=== PATIENT | male | born 1940 | race Caucasian/White ===

== ENCOUNTER → 2020-10-18 | Outpatient (CLI) | payer OTHER ==
[~2020-10-18] MED LIST: ASA81BEC PO; CILOSTAZOL 100100 M1 PO; LEVOTHYROXINE112 MCG PO; LIPITOR 40 MG T40 M1 PO; MULTI VITAMIN1 EACH PO; PRILOSEC OTC20 MG PO; TURMERIC500 M2 PO; VITAMIN C500 M2 PO; VITAMIN D350 MCG PO; ZINC50 M2 PO
== END ==
LOC: LAB 13:46
PROVIDERS: ATTEND Ophthalmology
DX: Z01.812 Encounter for preprocedural laboratory examination (principal); Z20.822 Contact with and (suspected) exposure to COVID-19

== ENCOUNTER 2020-10-21 08:47 | Day surgery (SDC) | payer OTHER ==
[~2020-10-21] VITALS: Ht 170.2 cm; Wt 80.7 kg
[2020-10-21 11:22] VITALS: BP 125/71
--- NOTE | 2020-10-25 06:20 | O ---
[facility] [place] [address] OPERATIVE REPORT Name: GLO ZAMORA Room #: DEP [facility]..#: [id number] Admission: 10/21/20 Attend Phys: Pete Cotter MD Discharge: 10/21/20 Date of : 38 Report #: [id number] THIS REPORT FOR: cc: Ruddy Bird MD, Simon J. 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 PROCEDURE: Bilateral lower lid ectropion repair with transconjunctival left lower lid and cheek lift. SURGEON: Pete Cotter MD MANAGER OF CASE: None. ANESTHESIA: MAC. COMPLICATIONS: None. 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 In addition, he has left lower lid retraction with lagophthalmos. He presents today for a bilateral lower lid and left cheek procedure in order to attempt to improve his ocular surface milieu, level of comfort and visual clarity. Informed consent was obtained to include but not limited to the potential risk for loss of vision, bleeding, infection, failure to improve the problem, the potential need for further surgery or treatment. DESCRIPTION OF PROCEDURE: The patient was taken to the operating room where 2% Xylocaine with epinephrine mixed with equal parts of 0.75% Marcaine with Wydase was administered transcutaneously and transconjunctivally to each lower lid lateral canthus and infratemporal fossa. In addition, on the left side, the cheek was anesthetized. The patient was then prepped and draped in the usual sterile fashion. Attention was first turned to the left side where the left lateral canthus was then clamped with a Bourgeois clamp. A sharp canthotomy and cantholysis was then performed. A tarsal strip was then prepared laterally removing the lash bearing portion of the redundant lid margin and the redundant tarsal plate. [facility] [address] [address] OPERATIVE REPORT Name: GLO ZAMORA Room #: DEP [facility].#: [id number] Admission: 10/21/20 Attend Phys: Pete Cotter MD Discharge: 10/21/20 Date of : 38 Report #: [id number] was once re-achieved. Attention was then turned away from the ectropion repair and towards the lower lid and cheek lift. A transconjunctival incision was then made below the inferior border of the tarsal plate across the width of the lid. The dissection was then carried down into the pre-malar tissues utilizing a cutting current. Hemostasis was re-achieved. The lower lid and cheek tissues were then elevated and resuspended with interrupted mattress chromic sutures. This lifted the lower lid and cheek well. Attention was then turned to the completion of the ectropion repair. The tarsal strip was attached to the internal portion of the lateral orbital tubercle with interrupted 5-0 Prolene sutures. The subcutaneous structures and the skin were then closed with interrupted 6-0 plain gut sutures. Attention was then turned to the right side where the right lateral canthus was then clamped with a Bourgeois clamp. A sharp canthotomy and cantholysis was then performed. Hemostasis was re-achieved. A tarsal strip was then prepared laterally removing the lash bearing portion of the redundant lid margin and the redundant tarsal plate. Hemostasis was once again re-achieved. The tarsal strip was then secured to the internal portion of the lateral orbital tubercle with interrupted 5-0 Prolene sutures. The subcutaneous structures and the skin were then closed with interrupted 6-0 plain gut sutures. The wounds were then cleaned and dressed with erythromycin ophthalmic ointment. The patient subsequently transported to the recovery area having tolerated the procedures well with no anesthetic or operative complications being noted. <ELECTRONICALLY SIGNED> By: Pete Cotter MD 10/25/20 0620 [id number] Pete Cotter MD /nt
== END 2020-10-21 13:10 | disposition home or self-care (01) ==
LOC: OR → TBA 09:04 → OR 09:24
PROVIDERS: ATTEND Ophthalmology
DX: H02.105 Unspecified ectropion of left lower eyelid (principal); H02.102 Unspecified ectropion of right lower eyelid; H02.535 Eyelid retraction left lower eyelid; H02.205 Unspecified lagophthalmos left lower eyelid; H18.9 Unspecified disorder of cornea; I10 Essential (primary) hypertension; E11.9 Type 2 diabetes mellitus without complications; E78.5 Hyperlipidemia, unspecified; E03.9 Hypothyroidism, unspecified; K21.9 Gastro-esophageal reflux disease without esophagitis; Z85.828 Personal history of other malignant neoplasm of skin; Z98.890 Other specified postprocedural states; Z79.899 Other long term (current) drug therapy; Z90.49 Acquired absence of other specified parts of digestive tract
CPT/HCPCS: 50010; 50101; 50386; 50398; 51636; 56527; 56531; 62110; 62850; 70005

== ENCOUNTER → 2021-09-12 | Outpatient (CLI) | payer OTHER | LOC: RAD 11:43 | PROVIDERS: ATTEND Internal Medicine Pulmonary Disease | DX: J84.10 Pulmonary fibrosis, unspecified (principal); R91.8 Other nonspecific abnormal finding of lung field; M51.34 Other intervertebral disc degeneration, thoracic region; M46.04 Spinal enthesopathy, thoracic region ==